=== PATIENT | female | born 1990 | race Caucasian/White ===

== ENCOUNTER → 2018-09-09 12:28 | Outpatient (CLI) | payer BC, SELFPAY ==
[2018-09-12 10:07] LABS: HPV Reflexed? NOT INDICATED
== END ==
PROVIDERS: Referring Provider Family Medicine; Visit Provider Family Medicine
DX: Z12.72 Encounter for screening for malignant neoplasm of vagina (principal)
CPT/HCPCS: 88175; G0145

== ENCOUNTER → 2018-12-16 11:50 | Outpatient (CLI) | payer BC, MEDICAID, SELFPAY ==
--- NOTE | 2018-12-16 11:54 | RAD_ITS ---
STUDY: X-RAY CHEST REASON FOR EXAM: Female, 28 years old. Pleuritic chest pain on the left. TECHNIQUE: PA and lateral views of the chest. COMPARISON: None. FINDINGS: There is hyperinflation of the lungs without infiltrate or mass. There is no demonstrated pleural abnormality. Normal size heart. Normal mediastinum and celine. Normal visualized pulmonary arteries. Normal visualized aortic arch and descending thoracic aorta. Normal visualized thoracic spine. Normal visualized ribs, clavicles, and shoulders. There is no demonstrated abnormality of the visualized soft tissue structures of the upper abdomen. RAD/Chest PA and Lateral IMPRESSION: Hyperexpansion of the lungs. Electronically Signed: Wiliam Marsh DO at 15:42 EDT Tel [phone], Service support ,
== END ==
PROVIDERS: Family Provider Family Medicine; PCP Family Medicine; Referring Provider Family Medicine; Visit Provider Family Medicine
DX: R07.89 Other chest pain (principal)
CPT/HCPCS: 71046

== ENCOUNTER → 2018-12-17 09:00 | Outpatient (CLI) | payer BC, SELFPAY ==
[2018-12-17 10:28] LABS: Anion Gap 4 (5-15); BUN 11 mg/dL (7-18); BUN/Creat Ratio 16.5 RATIO (10-20); Calcium,Total 8.4 mg/dL (8.5-10.1); Chloride 105 mmol/L (98-107); Cholesterol 162 mg/dL (200); Creatinine, Serum 0.67 mg/dL (0.55-1.02); EST Glomerular Filtration Rate 111 mL/min (>60); Est Glom Filt Rate - Afr Amer 135 mL/min (>60); Glucose 87 mg/dL (74-106); High Density Lipoprotein 74 mg/dL; Sodium Level 138 mmol/L (136-145); Triglycerides 100 mg/dL; Very Low Density Lipoprotein 20 mg/dL (5-40)
[2018-12-17 10:46] LABS: Vitamin D,25 Hydroxy 13.1 ng/mL (29.95-100.01)
== END ==
PROVIDERS: Family Provider Family Medicine; PCP Family Medicine; Referring Provider Family Medicine; Visit Provider Family Medicine
DX: Z00.00 Encounter for general adult medical examination without abnormal findings (principal)
CPT/HCPCS: 36415; 80048; 80061; 82306

== ENCOUNTER → 2018-12-31 | Outpatient (CLI) | payer BC, MEDICAID, SELFPAY ==
--- NOTE | 2018-12-31 13:41 | ECHOCS_ITS ---
Reason For Study: Mid Systolic Click Procedure This was a 2D Doppler, Color Flow transthoracic echocardiogram. The study was technically difficult. Contrast injection was performed. Exam performed in department. Left Ventricle Normal LV size. Left ventricular systolic function is normal. The estimated ejection fraction is 65 %. No evidence for diastolic dysfunction. No regional wall motion abnormalities noted. Right Ventricle Normal RV size. Normal systolic function. Atria Normal left atrium. Normal right atrium. Mitral Valve Normal mitral valve. Tricuspid Valve Normal tricuspid valve. Aortic Valve Normal aortic valve. Trisinus/trileaflet aortic valve. Pulmonic Valve Normal pulmonic valve. Great Vessels Normal aortic root. The pulmonary artery is normal size. Normal inferior vena cava. Pericardium/Pleural No pericardial effusion. Medication 22 gauge I.V. with prn adaptor inserted into right arm. Diluted definity 1ml given slow IV push to enhance endocardial definition. Performed a rapid injection of agitated mix of 9 cc saline and 1cc air to assess for atrial septal defect. MMode/2D Measurements & Calculations LVIDd: 4.9 cm IVSd: 0.71 cm Ao root diam: 2.5 cm LVIDs: 3.2 cm LVPWd: 0.55 cm LA dimension: 3.3 cm FS: 35.2 % LAV(MOD-bp): 44.1 ml LA A4 area: 15.9 cm2 RA A4 area: 10.1 cm2 LAV(MOD-bp) Indexed: 26.0 ml/m2 LAV(MOD-sp2): 45.3 ml LAV(MOD-sp4): 36.8 ml Time Measurements MV dec time: 0.17 sec Doppler Measurements & Calculations MV E max jeremias: 102.5 cm/sec Lat Peak E' Jeremias: 15.3 cm/sec Med Peak E' Jeremias: 16.2 cm/sec MV A max jeremias: 87.9 cm/sec E/E' lat: 6.7 E/E' med: 6.3 MV E/A: 1.2 MV V2 max: 140.6 cm/sec MV P1/2t max jeremias: 141.6 cm/sec Ao V2 max: 158.9 cm/sec MV max P.9 mmHg MV P1/2t: 58.1 msec Ao max P.1 mmHg MV V2 mean: 73.4 cm/sec MV dec slope: 713.2 cm/sec2 MV mean P.6 mmHg MV V2 VTI: 28.0 cm MVA(P1/2t): 3.8 cm2 LV V1 max: 129.4 cm/sec PA V2 max: 85.7 cm/sec LV V1 max P.7 mmHg Interpretation Summary Normal LV size. Left ventricular systolic function is normal. The estimated ejection fraction is 65 %. No evidence for diastolic dysfunction. Contrast injection was performed. Ordering Physician: Jeremy Isaacs Referring Physician: Jeremy Isaacs Performed By: Moris Hartman RCS
== END | disposition home or self-care (01) ==
LOC: CVS 13:39
PROVIDERS: Family Provider Family Medicine; PCP Family Medicine; Referring Provider Family Medicine; Visit Provider Family Medicine
DX: R01.2 Other cardiac sounds (principal)
CPT/HCPCS: 93306; Q9957; A4216; C8929

== ENCOUNTER → 2019-09-27 09:02 | Outpatient (CLI) | payer BC, MEDICAID, SELFPAY ==
[2019-09-27 10:12] LABS: Absolute Lymphocyte Count 1.47 X10^3/uL (0.83-4.51); Absolute Neutrophil Count 4.9 X10^3/uL (2.0-7.7); Basophil# 0.05 X10^3/uL; Basophil% 0.7 % (0-1); Eosinophil# 0.12 X10^3/uL; Eosinophils% 1.7 % (0-5); Hematocrit 42.1 % (37-47); Hemoglobin 14.7 g/dL (12.0-15.0); Lymphocyte # 1.47 X10^3/ul (4.0); Lymphocyte % 20.4 % (19-41); Mean Corp Hgb Conc 34.9 g/dL (32-36); Mean Corpuscular Hgb 31.6 pg (27.0-32.0); Mean Corpuscular Volume 90.5 fL (81-99); Mean Platelet Vol. 11.2 fl (6.2-12.0); Monocyte# 0.61 X10^3/uL; Monocyte% 8.5 % (0-10); NRBC Flagged by Analyzer 0 % (0-5); Neutrophil # 4.92 X10^3/uL (2.7-7.7); Neutrophil % 68.4 % (47-70); Platelet Count 172 K/mm3 (150-450); RBC Distribution Width CV 11.9 % (11.6-14.6); RBC Distribution Width SD 38.9 fl (35.1-43.9); Red Blood Count 4.65 M/mm3 (4.2-5.4); White Blood Count 7.2 K/mm3 (4.4-11.0)
[2019-09-27 10:26] LABS: Anion Gap 3 (5-15); BUN 8 mg/dL (7-18); BUN/Creat Ratio 10.5 RATIO (10-20); Calcium,Total 8.8 mg/dL (8.5-10.1); Chloride 107 mmol/L (98-107); Creatinine, Serum 0.76 mg/dL (0.55-1.02); EST Glomerular Filtration Rate 95 mL/min (>60); Est Glom Filt Rate - Afr Amer 114 mL/min (>60); Glucose 94 mg/dL (74-106); Potassium 3.8 mmol/L (3.5-5.1); Sodium Level 139 mmol/L (136-145)
== END ==
PROVIDERS: Family Provider Family Medicine; PCP Family Medicine; Referring Provider Family Medicine; Visit Provider Family Medicine
DX: R51 Headache (principal)
CPT/HCPCS: 36415; 80048; 85025

== ENCOUNTER → 2019-10-04 08:15 | Outpatient (CLI) | payer BC, MEDICAID, SELFPAY ==
--- NOTE | 2019-10-04 08:19 | CT_ITS ---
STUDY: CT BRAIN WITHOUT CONTRAST REASON FOR EXAM: Female, 29 years old. Headache RADIATION DOSAGE (If Supplied By Facility): DLP = ( 812.98 ) mGycm TECHNIQUE: Transaxial CT imaging of the brain was performed without administration of intravenous contrast material. Individualized dose optimization techniques were used for this CT. COMPARISON: None. FINDINGS: There is no acute bleed or infarct. There are normal white matter tracts. The ventricles are normal in configuration. There is no hydrocephalus. The visualized paranasal sinuses are clear. The mastoid air cells are well aerated. There is no skull fracture. CT/Brain/Head without Contrast IMPRESSION: No acute intracranial abnormality. Electronically Signed: Erik Lucia, at 17:03 EST Tel , Service support ,
== END ==
PROVIDERS: Family Provider Family Medicine; PCP Family Medicine; Referring Provider Family Medicine; Visit Provider Family Medicine
DX: R51 Headache (principal)
CPT/HCPCS: 70450

== ENCOUNTER → 2020-02-18 15:09 | Outpatient (CLI) | payer BC, MEDICAID, SELFPAY ==
--- NOTE | 2020-02-18 15:11 | RAD_ITS ---
STUDY: X-RAY - RIGHT WRIST REASON FOR EXAM: Female, 30 years old. heard a pop in the right wrist today when lifting weights, pain TECHNIQUE: 3 view(s) of the wrist were obtained. COMPARISON: None. FINDINGS: Normal visualized distal radius and ulna. Normal radiocarpal articulation. Normal distal radioulnar articulation. Normal carpal bones. Normal carpal articulations. Normal carpometacarpal articulation of the thumb. Normal second through fifth carpometacarpal articulations. Normal visualized metacarpal bones. The soft tissue structures are unremarkable. RAD/Wrist min 3 Views IMPRESSION: Normal x-ray examination of the wrist. Electronically Signed: Erik Read MD at 23:01 EDT , Service support ,
== END ==
PROVIDERS: PCP Family Medicine; Referring Provider Family Medicine; Visit Provider Family Medicine
DX: M25.539 Pain in unspecified wrist (principal)
CPT/HCPCS: 73110

== ENCOUNTER → 2020-06-12 15:39 | Outpatient (CLI) | payer MEDICAID, SELFPAY ==
--- NOTE | 2020-06-12 15:41 | RAD_ITS ---
STUDY: X-RAY - RIGHT KNEE REASON FOR EXAM: Bilateral knee pain, left more than right. TECHNIQUE: 4 view(s) of the knee. COMPARISON: None. FINDINGS: Normal visualized distal femur. Normal visualized proximal tibia and fibula. Normal proximal tibiofibular articulation. Normal medial femorotibial compartment. Normal lateral femorotibial compartment. Normal patellofemoral articulation. The soft tissue structures are unremarkable. RAD/Knee 4 or More Views IMPRESSION: Normal x-ray examination of the right knee. Electronically Signed: Will Munoz MD at 8:22 EDT Tel , Service support ,
--- NOTE | 2020-06-12 15:41 | RAD_ITS ---
STUDY: X-RAY - LEFT KNEE REASON FOR EXAM: Female, 30 years old. Bilateral knee pain, left more than right TECHNIQUE: 4 view(s) of the knee. COMPARISON: None. FINDINGS: Normal visualized distal femur. Normal visualized proximal tibia and fibula. Normal proximal tibiofibular articulation. Normal medial femorotibial compartment. Normal lateral femorotibial compartment. Normal patellofemoral articulation. The soft tissue structures are unremarkable. RAD/Knee 4 or More Views IMPRESSION: Normal x-ray examination of the knee. Electronically Signed: Kristi Christianson MD at 4:59 EDT Tel , Service support ,
== END ==
PROVIDERS: PCP Family Medicine; Referring Provider Nurse Practitioner Family; Visit Provider Nurse Practitioner Family
DX: M25.561 Pain in right knee (principal); M25.562 Pain in left knee
CPT/HCPCS: 73564

== ENCOUNTER → 2020-10-16 09:04 | Outpatient (CLI) | payer MEDICAID, SELFPAY ==
--- NOTE | 2020-10-16 09:09 | RAD_ITS ---
STUDY: X-RAY - ABDOMEN/PELVIS REASON FOR EXAM: Female, 30 years old. Right side abd pain, states it feels like something catches when she moves certain ways or bends x 2 months TECHNIQUE: AP supine and upright views of the abdomen and pelvis. COMPARISON: None. FINDINGS: Normal visualized lung bases. There is an abundance of fecal material throughout the colon. There is no demonstrated free abdominal air. The visualized liver, spleen and kidneys are grossly normal in size and morphology. Normal soft tissue structures. Normal visualized osseous structures. RAD/Abd Inc Decub and/or Erect IMPRESSION: Large amount of fecal material is seen in the colon. Electronically Signed: Smith Pollock MD at 15:40 EST , Service support ,
[2020-10-16 09:54] LABS: Absolute Lymphocyte Count 1.68 X10^3/uL (0.83-4.51); Absolute Neutrophil Count 4.9 X10^3/uL (2.0-7.7); Basophil# 0.07 X10^3/uL; Basophil% 0.9 % (0-1); Eosinophil# 0.16 X10^3/uL; Eosinophils% 2.1 % (0-5); Hematocrit 40.9 % (37-47); Hemoglobin 14.2 g/dL (12.0-15.0); Lymphocyte # 1.68 X10^3/ul (4.0); Lymphocyte % 22.3 % (19-41); Mean Corp Hgb Conc 34.7 g/dL (32-36); Mean Corpuscular Volume 89.3 fL (81-99); Mean Platelet Vol. 11.2 fl (6.2-12.0); Monocyte% 9.3 % (0-10); NRBC Flagged by Analyzer 0 % (0-5); Neutrophil # 4.88 X10^3/uL (2.7-7.7); Platelet Count 207 K/mm3 (150-450); RBC Distribution Width CV 11.6 % (11.6-14.6); RBC Distribution Width SD 37.9 fl (35.1-43.9); Red Blood Count 4.58 M/mm3 (4.2-5.4); White Blood Count 7.5 K/mm3 (4.4-11.0)
== END ==
PROVIDERS: Family Medicine; PCP Family Medicine; Referring Provider Family Medicine; Visit Provider Family Medicine
DX: R10.9 Unspecified abdominal pain (principal)
CPT/HCPCS: 36415; 74019; 85025

== ENCOUNTER → 2020-10-20 09:09 | Outpatient (CLI) | payer MEDICAID, SELFPAY ==
--- NOTE | 2020-10-20 09:11 | US_ITS ---
STUDY: ABDOMINAL ULTRASOUND REASON FOR EXAM: Female, 30 years old. ABDOMEN PAIN MOSTLY RLQ TECHNIQUE: Transabdominal ultrasound was performed with real-time and static bryant scale imaging. TECHNICAL QUALITY: Adequate. COMPARISON: None. FINDINGS: Liver: The liver measures 14.6 cm. There is normal echogenicity of the liver. The bile ducts are within normal limits. There is hepatic color flow. The direction of portal flow is hepatopetal. There is no demonstrated mass lesion. Portal vein measurement: Gallbladder: Normal distended gallbladder. The gallbladder wall measures 1.3 mm. There is a positive sonographic Garcia''s sign. There is no pericholecystic fluid. There are multiple echogenic structures within the gallbladder, consistent with multiple gallstones. Common Bile Duct (C.B.D.): The common bile duct measures 4.1 mm. Pancreas: Normal size of the head, body and tail of the pancreas. There is normal echogenicity of the pancreas. There is no demonstrated pancreatic mass or cyst. Spleen: Normal size of the spleen. The spleen measures 10.7 cm x 5.4 cm x 3.7 cm. Right Kidney: Normal size of the right kidney. The right kidney measures 10.7 cm x 5.4 cm x 3.7 cm. Normal renal cortex. The right cortex measures 1.1 cm. There is no demonstrated renal mass or cyst. There is no right hydronephrosis. Left Kidney: Normal size of the left kidney. The left kidney measures 12 cm x 4.6 x 4.9 cm. Normal renal cortex. The left cortex measures 1.5 cm. There is no demonstrated renal mass or cyst. There is no left hydronephrosis. Aorta: Unremarkable. I.V.C.: The IVC is patent. There is no ascites. US/Abdomen Complete IMPRESSION: Multiple gallstones. Electronically Signed: Smith Pollock MD at 15:40 EST , Service support ,
== END ==
PROVIDERS: PCP Family Medicine; Referring Provider Family Medicine; Visit Provider Family Medicine
DX: R10.9 Unspecified abdominal pain (principal)
CPT/HCPCS: 76700

== ENCOUNTER 2020-10-30 07:54 | Day surgery (SDC) | payer MEDICAID, SELFPAY ==
[2020-10-26 08:53] VITALS: BMI 21.4
--- NOTE | 2020-10-27 09:10 | EKG12_ITS ---
Test Reason : PREOP Blood Pressure : / mmHG Vent. Rate : 061 BPM Atrial Rate : 061 BPM P-R Int : 118 ms QRS Dur : 094 ms QT Int : 420 ms P-R-T Axes : -07 081 014 degrees QTc Int : 422 ms Normal sinus rhythm Incomplete right bundle branch block Confirmed by HYACINTH KAY, HANSA ([id number]), primer expeditor and drier PIPER DARNELL ([id number]) on 10/30/2020 1:21:46 PM Referred By: Gilmar Newton Confirmed By:HANSA CLAROS MD
[2020-10-30] VITALS (8 sets, daily range): BP systolic 99–113; BP diastolic 61–77; PULSE 60–82; RESP 12–18; TEMP 36.2–37.5; O2SAT 98–100; BMI 21.1
[2020-10-30 08:12] LABS: Internal QC Validated? YES +Cl - CLEAR BKGD; Pregnancy, Urine Negative Negative
--- NOTE | 2020-10-30 08:32 | HP.PCM_ITS ---
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 Gilmar Newton MD) Cholelithiasis with chronic cholecystitis (Chronic) Cardiac murmur (Acute) Gallstones (Acute) Surgical History (Updated 10/26/20 @ 08:48 by Gabrielle Vaz) History of wisdom tooth extraction (Acute) Family History (Updated 10/26/20 @ 08:48 by Gabrielle Vaz) Mother Hypertension Cancer skin Thyroid disorder HPI HPI HPI: ELIANE STUART, is a 30 F who presents to the office today for surgical consultation regarding abdominal pain. The patient is referred by Dr. Vivi Beasley and a written copy for surgical consult recommendations will be returned to her. Very pleasant 30-year-old female. For 6 months she has been having trouble with a discomfort in the right upper quadrant. She has had some postprandial nausea. On October 16, 2020 CBC was obtained and that was normal. On October 16, 2020 she had plain films of the abdomen taken showing a large amount of fecal material. She is not particularly describe issues with chronic constipation. A0. She did not gain much weight during her other than with the weight of the baby. She is quite small at 133 pounds with a BMI of 21.4. She has in the recent past had approximately a 10 pound weight loss. She is currently employed at [employer]. On October 20, 2020 she had a gallbladder ultrasound showing multiple gallstones. Fortunately at that time the common bile duct was normal. There was no pericholecystic fluid. Patient was felt to be sensitive and had a positive Gracia sign.' [facility] [address] [place] [address] Abdomen Complete MR#: [id number]:[id number] Name: ELIANE STUART #:[id number] : 1990F 30 From: Smith Pollock MD PCP:Dr. Rubin Albrecht MD Status:REG CLI Study:Abdomen Complete Date of Exam:10/20/20 Exam#[id number] Ordering Dr: Vivi Beasley MD STUDY: ABDOMINAL ULTRASOUND REASON FOR EXAM: Female, 30 years old. ABDOMEN PAIN MOSTLY RLQ TECHNIQUE: Transabdominal ultrasound was performed with real-time and static bryant scale imaging. TECHNICAL QUALITY: Adequate. COMPARISON: None. FINDINGS: Liver: The liver measures 14.6 cm. There is normal echogenicity of the liver. The bile ducts are within normal limits. There is hepatic color flow. The direction of portal flow is hepatopetal. There is no demonstrated mass lesion. Portal vein measurement: Gallbladder: Normal distended gallbladder. The gallbladder wall measures 1.3 mm. There is a positive sonographic Garcia''s sign. There is no pericholecystic fluid. There are multiple echogenic structures within the gallbladder, consistent with multiple gallstones. Common Bile Duct (C.B.D.): The common bile duct measures 4.1 mm. Pancreas: Normal size of the head, body and tail of the pancreas. There is normal echogenicity of the pancreas. There is no demonstrated pancreatic mass or cyst. Spleen: Normal size of the spleen. The spleen measures 10.7 cm x 5.4 cm x 3.7 cm. Right Kidney: Normal size of the right kidney. The right kidney measures 10.7 cm x 5.4 cm x 3.7 cm. Normal renal cortex. The right cortex measures 1.1 cm. There is no demonstrated renal mass or cyst. There is no right hydronephrosis. Left Kidney: Normal size of the left kidney. The left kidney measures 12 cm x 4.6 x 4.9 cm. Normal renal cortex. The left cortex measures 1.5 cm. There is no demonstrated renal mass or cyst. There is no left hydronephrosis. Aorta: Unremarkable. I.V.C.: The IVC is patent. There is no ascites. US/Abdomen Complete IMPRESSION: Multiple gallstones. Electronically Signed: Smith Pollock MD at 15:40 EST , Service support , HPI HPI HPI: ELIANE STUART, is a 30 F who presents to the office today for ROS General General: Yes fatigue; no weight change, appetite, colon cancer, breast cancer or weakness HEENT HEENT: No difficulty swallowing, eye injury, eye surgery, swollen glands or hoarseness Endo Endocrine: No thyroid disease, diabetes mellitus, thyroid cancer, Hair loss, heat intolerance or cold intolerance Musc Musculoskeletal: No back problems, arthritis, rheumatoid arthritis, gout or joint pain Cardio Cardiovascular: Yes murmur; no pacemaker, heart disease, atrial fibrillation, high blood pressure, heart attack, heart stent, palpitations, shortness of breat with exertion or chest pain Psych Psychiatric: No depression, anxiety or hearing voices Resp Respiratory: No shortness of breath, No sleep apnea, No cough, No COPD, No asthma, No emphysema, No wheezing Gastro Gastrointestinal: Yes abdominal pain, Yes nausea or vomiting, No diarrhea, No constipation, No blood in stool, No acid reflux, No hemorrhoids, No ulcers, Yes gallbladder problem, No black,tarry stools Peng Hematologic: No blood thinners, No blood disorders, No bleeding, No anemia, No blood clots Neuro Neurologic: No weakness Exam Const General: cooperative, healthy appearing, comfortable, no acute distress Nutritional Appearance: underweight Orientation: awake [facility] Head: normal to inspection Eyes General: appearance normal, both eyes and all related structures Neck Neck: normal visual inspection Chest Chest palpation & inspection: normal inspection of the chest Other: No CVA percussion tenderness to her back Resp Effort & Inspection: normal respiratory effort Auscultation: clear to auscultation bilaterally Cardio Rate: regular rate Rhythm: regular rhythm Heart Sounds: murmur GI Palpation: soft, no hepatosplenomegaly Auscultation: normal bowel sounds Musc Cervical Spine: normal cervical lordosis Skin Lesions: no lesions Neuro Cognition: normal cognition Extrem General: no calf tenderness Psych Affect: normal affect Assessment & Plan Problems 1. Calculus of gallbladder with chronic cholecystitis without obstruction K80.10 Plan I do believe patient's symptoms are consistent with chronic cholecystitis cholelithiasis and biliary colic. I believe she likely is so slender that she can actually feel her intermittently distended gallbladder. I propose for her a laparoscopic cholecystectomy with selective cholangiography and detail discussed the technique, benefit, risk and alternatives. She has had an opportunity to ask and have questions answered. We will schedule and proceed at her discretion. I appreciate the opportunity of assisting with her surgical care. Copy: Dr. Vivi Beasley and Dr. Rubin Newton M.D., F.A.C.S. Coding Level of Care Code 49019 Diagnoses Calculus of gallbladder with chronic cholecystitis without obstruction K80.10 ??Cholelithiasis location: gallbladder ??Biliary obstruction: without biliary obstruction I have re-examined the patient. There are no clinical changes since date of exam. Procedure Criteria Procedure Type: Elective COVID Risk Discussion: The surgeon/proceduralist and patient have discussed in detail the risk of exposure to and/or potential harm posed by the COVID-19 virus with having a surgery/procedure at this time versus the risk of delaying the surgery/procedure. It is not possible to know either the risk of delaying the surgery or procedure or chance of getting an infection with perfect accuracy, but a joint decision was made between the patient and the surgeon/proceduralist to proceed at this time with the scheduled surgery/procedure as indicated on the consent form.
[2020-10-30] MEDS: Lactated Ringers 1,000 ML 100 ML IV ×2 (08:34→11:20)
--- NOTE | 2020-10-30 08:44 | DCINST_ITS ---
Discharge Diet: Light diet - advance as tolerated - if you have questions about your diet instructions, please talk to you doctor. Discharge Activity: May Not Drive - for 3-5 days or while taking narcotic pain medicine. May shower in (days): 1 Lifting Restrictions: 10 pounds Call your doctor if your incision/area has: Continuous Slow Oozing, Sudden Increased Bleeding, Increased Pain/ Swelling, Increased Redness, Foul Smelling Discharge Call your doctor if you observe: Fever of 101 or Higher Suture Line Care: Avoid Pulling/Pushing, Avoid Pinching/Bending Additional Dressing/Incision Instructions:: Change or remove dressing in 4 days. Leave steri-strips in place for 1 week. Allergies/Adverse Reactions: Allergies No Known Allergies Allergy (Verified 10/26/20 14:51) Medications to take at Discharge NK 10/26/20 Primary Care Physician: Rubin Albrecht MD [Primary Care Provider] - Test Results: Test results from this visit will be discussed in further detail at your follow- up appointment, if applicable. Please Follow Up With: Gilmar Newton MD - [phone] When: Call for appt. May be phone, virtual, or on-site
[2020-10-30] MEDS: Cefazolin 2 GM in 0.9% Normal Saline 100 ML IV (09:20)
--- NOTE | 2020-10-30 09:20 | RAD_ITS ---
STUDY: INTRAOPERATIVE CHOLANGIOGRAM. REASON FOR EXAM: Female, 30 years old. GALLSTONES -- per Dr. Newton, cystic duct is coming off the R hepatic duct FLUOROSCOPY TIME (if supplied): ( 15 seconds. ) minutes/seconds. A cine loop of 102 images was submitted. TECHNIQUE: The surgeon performed an intraoperative cholangiogram. Imaging was submitted. COMPARISON: None. FINDINGS: The cystic duct inserts into the right hepatic duct. The intra and extrahepatic biliary ducts are unremarkable. There is free flow of contrast into the duodenum. RAD/Cholangiogram/ O R,Initial IMPRESSION: Unremarkable intraoperative cholangiogram. Electronically Signed: Smith Pollock MD at 10:39 EST , Service support ,
--- NOTE | 2020-10-30 09:20 | GALL_PTH ---
PATIENT: ELINAE STUART LOC: [facility] [place] U#:[id number] AGE/SX: 30/F ROOM: RE10/30/[address]: Dr. Gilmar Newton MD : 1990 BED: DIS: 10/30/2020 SPEC #: [id number] RECD: 10/30/20 13:19 STATUS: EDU GIRON #: [id number] SHANNON: 10/30/20 09:[address]: Gilmar Newton DEPT: SURGICAL PATHOLOGY RECD BY: Holly Niño ENTERED: 10/31/20 07:17 SP TYPE: ULYSSES WONG DR: Dr. Rubin Albrecht MD Tissues: Gallbladder, NOS Procedures: Surgery Specimen Level III HEADER OPERATION: Laparoscopic cholecystectomy with IOC, umbilical hernia repair PRE-OP DIAGNOSIS: Cholelithiasis with chronic cholecystitis TISSUE SUBMITTED: Gallbladder MICROSCOPIC DIAGNOSIS Gallbladder, cholecystectomy: Chronic cholecystitis and cholelithiasis. AM:michelle 11/01/2020 MICROSCOPIC DESCRIPTION Slides are reviewed. GROSS DESCRIPTION Received is one container labeled with the patient's name and designated gallbladder. The specimen consists of a gallbladder measuring 7.5 cm in length and up to 3 cm in diameter. The external surface is pink-taylor, smooth and glistening for the most part. Focally it is granular, hemorrhagic and contains cautery artifact. The gallbladder contains green-yellow mucoid bile and multiple multifaceted, brown stones measuring in aggregate 4 x 3 x 1 cm and 0.5 to 0.8 cm in greatest dimension. The mucosa is bile-stained and without any mass lesions. The gallbladder wall measures up to 0.2 cm in thickness. Steel Engraver sections from the gallbladder and the cystic duct are submitted in one cassette. / SJ:michelle 10/31/20 TC:3 CPT: 76114
[2020-10-30] MEDS: Bupivacaine Mpf 0.5% 30 ML VIAL (09:37)
--- NOTE | 2020-10-30 10:39 | OP.PCM_ITS ---
Problem List (1) Cholelithiasis with chronic cholecystitis Status: Chronic Qualifiers: Report of Operation Date of Procedure: 10/30/20 Pre-Operative Diagnosis: Chronic cholecystitis cholelithiasis Post-Operative Diagnosis: Same Surgery/Procedure Performed:: Laparoscopic cholecystectomy with cholangiography Description of Surgical Findings:: Timeout and informed consent was obtained. 30-year-old female was taken to the operating place upon the table underwent general endotracheal intubation anesthesia. Ancef 2 g were given intravenously. The abdomen was sterilely prepped and draped. 0.5% Marcaine was used as a local anesthetic. Throughout the procedure a total of 30 cc was used. Skin sites were preanesthetized. A curvilinear incision was made at the inferior portion of the umbilicus. Sharp dissection performed down through the subcutaneous tissue. The fascia was sharply incised. Direct access was gained to the peritoneum. A 12 mm nonactiv ated trocar was inserted. The abdomen was insufflated with CO2 to a pressure of 10 mmHg pressure. The abdomen was superficially inspected no evidence of any superficial abnormalities. Under direct visualization 5 mm trochars were placed in the epigastric right upper mid abdomen and right lateral upper abdomen. The gallbladder was distracted. Blunt dissection was instituted at the infundibulum until clearly the radical view was achieved. The cystic duct and cystic artery identified. The cystic artery was clipped proximally and distally prior to transecting it. A hemolock clip was placed on the cystic duct and then a incision was created in it and through a 14-gauge Angiocath angiogram catheter was inserted. Fluoroscopically control cholangiograms were obtained. This demonstrated that the cystic duct emanated from the right hepatic duct. There appeared to be good flow into the liver as well as good distal flow without intraluminal filling defect. The cholangiogram catheter was removed and a additional hemolock clip was placed on the cystic duct stump prior to transecting it. The gallbladder was tediously dissected free from the liver. There appeared to be a posterior cystic artery that was clipped several times to assure hemostasis and assured that this was not a biliary duct superficially located in the liver bed. The gallbladder was densely adherent to the liver bed and had to be dissected free. The top had a very small opening that leaked bile but absolutely no stones. This was rapidly controlled with graspers. The gallbladder was then released and immediately placed in a retrieval bag with no stone spillage. The right upper quadrant was irrigated and aspirated free of excess fluid. The liver bed area carefully inspected. Hemostasis was intact. All clips in proper position. No evidence of any bile leak. The abdomen was allowed to deflate through an antiviral valve. The gallbladder was exited the umbilicus and there were stones on the bottom of the gallbladder. The abdomen was fully decompressed. The transverse incision at the umbilicus was closed with simple sutures of interrupted 0 Nurolon. Skin edges approximate interrupted 4-0 Monocryl subdermal stitches. Steri-Strips Telfa OpSite dressings applied. Sponge and instrument and needle counts were reported to the surgeon be correct. Specimen gallbladder. Drains none. Blood loss minimal. The patient was taken to the recovery area in satisfactory edition without apparent complication Gilmar eNwton M.D., F.A.C.S. Type of Anesthesia:: General Anesthesiologist: Lolita Farah
[2020-10-30] MEDS: HYDROcodone Bitartrate/Apap 5/325 Tablet PO (13:45)
== END 2020-10-30 14:52 | disposition home or self-care (01) ==
LOC: SDC 07:56 → AC 07:56
PROVIDERS: Anesthesiology; PCP Family Medicine; Referring Provider Surgery; Visit Provider Surgery
PROC: (CPT 47610; principal; 2020-10-30 09:00)
DX: K80.10 Calculus of gallbladder with chronic cholecystitis without obstruction (principal); Z20.828 Contact with and (suspected) exposure to other viral communicable diseases; I45.10 Unspecified right bundle-branch block; Z87.891 Personal history of nicotine dependence; G25.81 Restless legs syndrome
CPT/HCPCS: 00790; 47563; 74300; 76000; 81025; 87426; 88304; 93005; C9803; J7120; J2405

== ENCOUNTER → 2021-02-14 17:40 | Outpatient (CLI) | payer MEDICAID, SELFPAY ==
[2020-10-30 08:16] VITALS: BMI 21.1
== END ==
PROVIDERS: Visit Provider Family Medicine
DX: Z71.84 Encounter for health counseling related to travel (principal)
CPT/HCPCS: 87635; U0005; U0003

== ENCOUNTER → 2023-02-04 | Outpatient (CLI) | payer MEDICAID, SELFPAY ==
[2023-02-04 12:22] LABS: Hematocrit 40.9 % (37-47); Mean Corp Hgb Conc 34.2 g/dL (32-36); Mean Corpuscular Hgb 31.3 pg (27.0-32.0); Mean Corpuscular Volume 91.5 fL (81-99); Mean Platelet Vol. 11.7 fl (6.2-12.0); Platelet Count 200 K/mm3 (150-450); RBC Distribution Width CV 11.8 % (11.6-14.6); RBC Distribution Width SD 39.6 fl (35.1-43.9); Red Blood Count 4.47 M/mm3 (4.2-5.4); White Blood Count 6.4 K/mm3 (4.4-11.0)
[2023-02-04 13:09] LABS: ALB/GLOB Ratio 1.2 RATIO (0.9-2.4); AST(SGOT) 12 U/L (15-37); Alanine Aminotransfer ALT/SGPT 24 U/L (13-56); Albumin, Serum 3.8 g/dL (3.2-5.0); Alkaline Phosphatase 54 U/L (45-117); Anion Gap 4 (5-15); BUN 9 mg/dL (7-18); BUN/Creat Ratio 12.7 RATIO (10-20); Calcium,Total 8.7 mg/dL (8.5-10.1); Chloride 107 mmol/L (98-107); Creatinine, Serum 0.71 mg/dL (0.55-1.02); EST Glomerular Filtration Rate 101 mL/min (>60); Est Glom Filt Rate - Afr Amer 122 mL/min (>60); Globulin 3.3 g/dL (2.2-4.2); Glucose 78 mg/dL (74-106); Potassium 3.9 mmol/L (3.5-5.1); Protein, Total 7.1 g/dL (6.4-8.2); Sodium Level 140 mmol/L (136-145); Thyroid Stim Hormone (TSH) 1.19 uIU/mL (0.358-3.74)
[2023-02-04 13:58] LABS: Vitamin B12 349 pg/mL (211-911); Vitamin D,25 Hydroxy 30.8 ng/mL
== END | disposition home or self-care (01) ==
LOC: MFPLAB 10:23
PROVIDERS: PCP Family Medicine; Visit Provider Nurse Practitioner Family
DX: R53.83 Other fatigue (principal)
CPT/HCPCS: 36415; 80053; 82306; 82607; 84443; 85027